=== PATIENT | male | born 2000 | race Caucasian/White ===

== ENCOUNTER → 2022-07-16 14:15 | Outpatient (BNVA) | payer OTHER, SELFPAY | PROVIDERS: PCP Pediatrics; Visit Provider Physician Assistant Medical | DX: Z13.89 Encounter for screening for other disorder (principal) | CPT/HCPCS: 99202 ==

== ENCOUNTER → 2022-09-14 12:11 | Outpatient (BNVA) | payer OTHER, SELFPAY | PROVIDERS: PCP Pediatrics; Visit Provider Physician Assistant Medical | DX: Z13.89 Encounter for screening for other disorder (principal) | CPT/HCPCS: 99203 ==

== ENCOUNTER → 2022-09-17 09:48 | Outpatient (BNVA) | payer OTHER, SELFPAY | PROVIDERS: PCP Pediatrics; Visit Provider Internal Medicine | DX: Z13.89 Encounter for screening for other disorder (principal) | CPT/HCPCS: 99213 ==

== ENCOUNTER → 2022-09-25 11:20 | Outpatient (BNVA) | payer OTHER, SELFPAY | PROVIDERS: PCP Pediatrics; Visit Provider Physician Assistant Medical | DX: Z13.89 Encounter for screening for other disorder (principal) | CPT/HCPCS: 99213 ==

== ENCOUNTER 2022-10-01 15:00 | Outpatient (RCR) | payer OTHER, MEDICAID, SELFPAY ==
--- NOTE | 2022-09-22 16:54 | MHC.PT.EP ---
[facility] [place] Office [place] Office [place] Office [address] Arabella Craig [address] [phone] F: [phone] F: [phone] F: [phone] F: [phone] Physical Therapy Plan of Care Date of Evaluation: Date of Surgery: N/A Diagnosis: upper lumbar lower thoracic strain Assessment: Pt is a pleasant and motivated 22yo M who presents to PT with mid back pain after transporting a bed through a narrow doorway on 09/14/22. Pt presents to PT with current impairments in pain, decreased thoracic ROM, soft tissue restrictions, decreased strength and impaired posture. He is TTP throughout R medial scap border, rhomboids, mid traps and R thoracic PS. He is limited functionally by prolonged sitting, prolonged standing, and twisting. He is an excellent candidate for skilled PT in order to address current impairments to facilitate return to PLOF. He is recommended to be seen 1x/week for 5 weeks and will be reassessed at that time. Frequency and Duration: The patient will be seen 1x/week for 5 weeks Short Term Goals: Pt will be I with HEP to promote self management of symptoms Pt will demonstrate improvements in postural awareness throughout the day Senior Care Goals: Pt will achieve full, pain-free ROM all planes of thoracic spine Pt will tolerate sitting > 30 min with improved posture and minimal to no discomfort to assist with work related tasks Treatment Plan: Modalities to reduce pain, spasms and effusion. Manual therapy to restore motion and function. Therapeutic exercise to improve strength and flexibility. Neuromuscular re-education for posture and balance. Therapeutic activities to return to functional activities of daily living. Electronically signed by: Elizabeth Salamanca, PT, DPT Please sign and return to therapist. Thank you for your referral.
--- NOTE | 2022-10-27 14:35 | MHC.PT.DC ---
[facility] [place] Office [place] Office [place] Office [address] Arabella Craig [address] [phone] F: [phone] F: [phone] F: [phone] F: [phone] Physical Therapy Discharge Report Diagnosis: upper lumbar lower thoracic strain Date of Surgery: N/A Date of Evaluation: 09/22/22 Date of Discharge: 10/27/22 Treatments to Date: 2 Cancellations to Date: No Shows to Date: 3 Discharge Status: Visit Non-compliance Discharge Summary: Pt was seen for skilled PT from 09/22/22-10/01/22. He attended initial PT evaluation and 1 PT treatment session. He has had 3 no-show appointments since SOC. He is being D/C from skilled PT per [facility] attendance policy and visit non-compliance. Electronically signed by: Elizabeth Salamanca, PT, DPT Please sign and return to therapist. Thank you for your referral.
== END 2022-10-27 14:34 | disposition home or self-care (01) ==
LOC: HO.PT 15:00
PROVIDERS: Visit Provider Physician Assistant
DX: M54.9 Dorsalgia, unspecified (principal)
CPT/HCPCS: 97110; 97140; 97161

== ENCOUNTER → 2022-11-10 08:42 | Outpatient (BNVA) | payer OTHER, SELFPAY | PROVIDERS: PCP Pediatrics; Visit Provider Physician Assistant Medical | DX: Z13.89 Encounter for screening for other disorder (principal) | CPT/HCPCS: 99202 ==

== ENCOUNTER → 2022-11-20 09:29 | Outpatient (BNVA) | payer OTHER, SELFPAY | PROVIDERS: PCP Pediatrics; Visit Provider Physician Assistant Medical | DX: Z13.89 Encounter for screening for other disorder (principal) | CPT/HCPCS: 99213 ==

== ENCOUNTER → 2022-12-04 09:46 | Outpatient (BNVA) | payer OTHER, SELFPAY | PROVIDERS: PCP Pediatrics; Visit Provider Physician Assistant Medical | DX: Z13.89 Encounter for screening for other disorder (principal) | CPT/HCPCS: 99213 ==

== ENCOUNTER 2022-12-22 07:00 | Outpatient (RCR) | payer OTHER, MEDICAID, SELFPAY | END 2023-01-29 13:15 | disposition home or self-care (01) | LOC: HO.PT 07:00 | PROVIDERS: PCP Pediatrics; Visit Provider Physician Assistant Medical | DX: S29.012D Strain of muscle and tendon of back wall of thorax, subsequent encounter (principal) | CPT/HCPCS: 97110; 97140; 97161 ==

== ENCOUNTER 2023-04-14 13:01 | Emergency (ER) | payer OTHER, SELFPAY ==
--- NOTE | ~2023-04-14 | XR_ITS ---
EXAMINATION: XR CHEST CLINICAL INFORMATION: Cough with black sputum COMPARISON: None available. TECHNIQUE: 2 views of the chest were obtained. FINDINGS: No significant abnormality is noted involving the heart, lungs, mediastinum, bony thorax or soft tissues. XR/XR chest 2V IMPRESSION: Unremarkable examination.
[2023-04-14 13:09] VITALS: BP 144/75; PULSE 70; RESP 18; TEMP 36.9; O2SAT 98; BMI 20.4
--- NOTE | 2023-04-14 13:10 | ED_ITS ---
HPI - General Adult General Chief complaint: Upper Respiratory Symptoms Stated complaint: Black phlegm Time Seen by Provider: 04/14/23 14:59 Source: patient Mode of arrival: ambulatory Limitations: no limitations History of Present Illness HPI narrative: patient with clear phlegm and black spots. 2 weeks, no blood. Patient smokes, denies wood burning stove, no fireplace, not chewing tobacco. Denies fever. Onset (ago): day(s) Severity: mild Related Data Previous Rx's Medication Instructions Recorded cyclobenzaprine 10 mg tablet 10 mg PO BEDTIME PRN muscle spasm 09/14/22 #7 tabs nicotine (polacrilex) 4 mg gum 4 mg buccal Q4-8H PRN nicotine 04/14/23 (Nicorette) cravings #100 ea Allergies Allergy/AdvReac Type Severity Reaction Status Date / Time No Known Allergies Allergy Verified 04/14/23 13:09 Review of Systems 2 Review of Systems: Yes all other systems are reviewed and are negative Neurologic: Denies Sensory deficit (Neuro) [facility] Social History Social History Advance Directives: No Advance Directives Information Provided: No Physical Exam ED Vital Signs: Vital Signs - 24 hr 04/14/23 13:09 Temperature 98.4 F Pulse Rate 70 Respiratory Rate 18 Blood Pressure 144/75 H Pulse Oximetry 98 Oxygen Delivery Method Room Air BMI result Body Mass Index 20.4 Const General: healthy appearing Nutritional Appearance: average body habitus Orientation/consciousness: oriented to person and patient oriented x3 Limitations: no limitations HENMT Head: Yes normal to inspection Ears: external ears normal General nose exam: Normal external nose present Mouth: Normal oral and palatal mucosa present and oropharynx normal Throat: Yes posterior oropharynx normal Eyes General: appearance normal, both eyes and all related structures Neck Neck: Yes normal visual inspection Chest Chest palpation & inspection: normal inspection of the chest Resp Auscultation: clear to auscultation bilaterally Cardio Jugular venous distension: no JVD Rate: regular rate Rhythm: regular rhythm Heart sounds: S1 normal heart sound present and S2 normal heart sound present GI Inspection: Yes normal to inspection Palpation (GI): Soft to palpation, nontender and No hepatosplenomegaly present Auscultation: normal bowel sounds General: Yes no CVA tenderness Back/Spine/Pelvis Back: no CVA tenderness Skin General skin exam: no rashes or lesions noted Neuro General: oriented to person and patient oriented x3 Cranial nerves: Yes CN's II-XII intact bilaterally Motor exam (neuro): 5/5 motor strength present throughout Sensory Exam: No Sensory deficit (Neuro) Extrem General: Yes normal to inspection Psych Appearance: grossly normal Course Course Course Narrative: RME: 22 year-old M w/no sig PMHx presenting to the ED c/o coughing up black specked sputum x2 weeks, daily. Denies brbpr/melena. No AC use, Admits to mild SOB Labs, CXR, viral studies ordered Full HPI, ROS and PE to be performed by primary ED provider. Reevaluation(s) Reevaluation #1: smoking cessation: discussed for 5 minutes the importance of stopping smoking and the different ways and interventions to make that happen. No evidence of pneumonia or other pulmonary pathology Time: 15:28 Medical Decision Making Differential Diagnosis Differential Diagnoses: The differential diagnosis associated with the presentation includes (Pneumonia, COPD, smoking damage, rsv, covid, influenza were all considered) Admission/Observation Consideration of admission/observation: Escalation of care including admission/observation considered (upon arrival patient was considered for admission) Lab Data MDM Lab Attestation statement: I reviewed the patient's lab results. 04/14/23 13:26 04/14/23 13:26 Labs: Lab Results 04/14/23 Range/Units 13:26 WBC 4.8 (4.8-10.8) X10*3/uL RBC 4.59 L (4.60-5.80) X10*6/uL Hgb 14.2 (14.0-18.0) g/dl Hct 40.3 L (42.0-52.0) % MCV 87.8 (80.0-98.0) fL MCH 30.9 (27.0-33.0) pg MCHC 35.2 (31.0-36.0) g/dl RDW 12.0 (11.0-16.0) % Plt Count 264 (160-400) X10*3/uL MPV 10.2 (9.4-12.4) fL Immature Gran % (Auto) 0.2 (0.0-0.4) % Neut % (Auto) 50.9 (45-73) % Lymph % (Auto) 42.1 H (20-40) % [place] % (Auto) 3.9 (2-11) % Eos % (Auto) 2.5 (0-4) % Baso % (Auto) 0.4 (0-2) % Lymph # (Auto) 2.0 (1.2-4.9) X10*3/uL [place] # (Auto) 0.2 (0.1-1.2) X10*3/uL Eos # (Auto) 0.1 (0.0-0.4) X10*3/uL Baso # (Auto) 0.0 (0.0-0.2) X10*3/uL Abs Immat Gran (auto) 0.01 (0.00-0.03) X10*3/uL Absolute Neuts (auto) 2.5 (2.0-8.3) x10*3/uL Absolute Nucleated RBC 0.000 (0.0-0.012) X10*3/uL Nucleated RBC % (auto) 0.0 (0.0-0.2) /100WBC PT 12.6 (11.1-13.3) SEC INR 1.0 (0.9-1.1) Sodium 140 (135-145) mmol/L Potassium 3.7 (3.3-5.1) mmol/L Chloride 105 (96-108) mmol/L Carbon Dioxide 26 (22-29) mmol/L Anion Gap 13 (12-20) BUN 8 L (9-16) mg/dL Creatinine 0.89 (0.5-1.4) mg/dL Estim Creat Clear Calc 111.3 Estimated GFR > 60 Random Glucose 135 H (60-115) mg/dL Calcium 9.4 (8.4-10.2) mg/dL Magnesium 2.0 (1.6-2.6) mg/dL Total Bilirubin 0.7 (0.0-1.0) mg/dL Direct Bilirubin 0.2 (0.0-0.5) mg/dL AST 20 (5-37) U/L ALT 18 (0-40) U/L Alkaline Phosphatase 59 (39-117) U/L Total Protein 7.2 (6.5-8.0) g/dL Albumin 4.7 (3.5-5.0) g/dL Lipase 14 (8-78) U/L Influenza Type A (PCR) NEGATIVE (Negative) Influenza Type B (PCR) NEGATIVE (Negative) RSV RNA Qual (PCR) NEGATIVE (Negative) SARS-CoV-2 RNA (RT-PCR) NEGATIVE (Negative) Independent Interpretation I performed an independent interpretation of an: EKG (sinus 70, no st or twave changes) and Plain X-Ray (CXR no infiltrate or mass) Tests considered The following testing was considered but not selected: CT of chest considered but patient non toxic normal vital normal xray Prescription Management I considered prescription management with: Antibiotic (no evidence of pneumonia on xray) Social Determinants Patient?s care significantly limited by Social Determinants of Health including: Other Social Determinant of Health (smoking) Discharge Plan Discharge Clinical Impression: Needs smoking cessation education, Smoking Patient Disposition: Home, Self-Care Instructions: How to Stop Smoking (ED) Prescriptions: New nicotine (polacrilex) [Nicorette] 4 mg gum 4 mg buccal Q4-8H PRN (Reason: nicotine cravings) Qty: 100 0RF No Action cyclobenzaprine 10 mg tablet 10 mg PO BEDTIME PRN (Reason: muscle spasm) Qty: 7 0RF Referrals: Physician,Nonstaff [Physician] - 1 week
--- NOTE | 2023-04-14 13:12 | ECG_ITS ---
Test Reason : SOB Blood Pressure : / mmHG Vent. Rate : 068 BPM Atrial Rate : 068 BPM P-R Int : 144 ms QRS Dur : 094 ms QT Int : 394 ms P-R-T Axes : 058 059 050 degrees QTc Int : 418 ms Normal sinus rhythm with sinus arrhythmia Normal ECG No previous ECGs available Referred By: Charla Sierra Electronically Signed By:EUFEMIA PETERSEN MD
[2023-04-14 13:33] LABS: MANUAL DIFF FLAG NO
[2023-04-14 13:37] LABS: Basophils Percent Auto 0.4 % (0-2); Eosinophils Absolute Auto 0.1 X10*3/uL (0.0-0.4); Eosinophils Percent Auto 2.5 % (0-4); Hematocrit 40.3 % (42.0-52.0); Hemoglobin 14.2 g/dl (14.0-18.0); Imm Gran Abs Auto 0.01 X10*3/uL (0.00-0.03); Imm Gran Pct Auto 0.2 % (0.0-0.4); Lymphocytes Percent Auto 42.1 % (20-40); Mean Corpuscular HGB Conc 35.2 g/dl (31.0-36.0); Mean Corpuscular Hemoglobin 30.9 pg (27.0-33.0); Mean Corpuscular Volume 87.8 fL (80.0-98.0); Mean Platelet Volume 10.2 fL (9.4-12.4); Monocytes Absolute Auto 0.2 X10*3/uL (0.1-1.2); Monocytes Percent Auto 3.9 % (2-11); Neutrophils Absolute Auto 2.5 x10*3/uL (2.0-8.3); Neutrophils Percent Auto 50.9 % (45-73); Platelet Count 264 X10*3/uL (160-400); Red Blood Count 4.59 X10*6/uL (4.60-5.80); White Blood Count 4.8 X10*3/uL (4.8-10.8)
[2023-04-14 13:46] LABS: Prothrombin Time 12.6 SEC (11.1-13.3)
[2023-04-14 13:52] LABS: Alanine Aminotransferase 18 U/L (0-40); Albumin Level 4.7 g/dL (3.5-5.0); Alkaline Phosphatase 59 U/L (39-117); Anion Gap 13 (12-20); Aspartate Amino Transferase 20 U/L (5-37); Bilirubin Direct 0.2 mg/dL (0.0-0.5); Bilirubin Total 0.7 mg/dL (0.0-1.0); Blood Urea Nitrogen 8 mg/dL (9-16); Calcium 9.4 mg/dL (8.4-10.2); Carbon Dioxide 26 mmol/L (22-29); Chloride 105 mmol/L (96-108); Creatinine Clr Calc Pharmacy 111.3; Estimated Glomerular Filt Rate > 60; Glucose Random 135 mg/dL (60-115); Lipase 14 U/L (8-78); Potassium 3.7 mmol/L (3.3-5.1); Sodium 140 mmol/L (135-145); Total Protein 7.2 g/dL (6.5-8.0)
[2023-04-14 15:04] LABS: Influenza A PCR NEGATIVE (Negative); Influenza B PCR NEGATIVE (Negative); Resp Syncy Virus RNA Qual PCR NEGATIVE (Negative); SARS COV2 PCR INHOUSE NEGATIVE (Negative)
== END 2023-04-14 15:42 | disposition home or self-care (01) ==
PROVIDERS: Physician Assistant; Emergency Provider Emergency Medicine
DX: R04.2 Hemoptysis (principal); F17.210 Nicotine dependence, cigarettes, uncomplicated; Z71.6 Tobacco abuse counseling; Z20.822 Contact with and (suspected) exposure to COVID-19; Z20.828 Contact with and (suspected) exposure to other viral communicable diseases
CPT/HCPCS: 0241U; 71046; 80048; 80076; 83690; 83735; 85025; 85610; 93005; 99283

== ENCOUNTER → 2023-04-14 13:12 | Outpatient (BNV) | payer OTHER, SELFPAY | PROVIDERS: Emergency Provider Emergency Medicine; Visit Provider Internal Medicine Cardiovascular Disease | DX: R06.02 Shortness of breath (principal) | CPT/HCPCS: 93010 ==

== ENCOUNTER 2025-03-23 16:25 | Emergency (ER) | payer MEDICAID, SELFPAY ==
--- NOTE | ~2025-03-23 | XR_ITS ---
CLINICAL HISTORY: cp sob 2 view chest x-ray. Comparison: 04/14/2023 Findings: No consolidation or effusion. Cardiac and mediastinal contours are stable. Bones unremarkable. Impression: 1. No acute pulmonary disease. This document has been electronically signed by: Ian Arnold MD on 03/23/2025 19:59:23
--- NOTE | 2025-03-23 16:27 | ECG_ITS ---
Test Reason : palpitations Blood Pressure : */* mmHG Vent. Rate : 89 BPM Atrial Rate : 89 BPM P-R Int : 140 ms QRS Dur : 82 ms QT Int : 348 ms P-R-T Axes : 74 46 45 degrees QTcB Int : 423 ms Normal sinus rhythm with sinus arrhythmia Normal ECG When compared with ECG of 14-Apr-2023 13:21, No significant change was found Referred By: Charla Sierra Electronically Signed By: Andrew Nunez
[2025-03-23 16:52] VITALS: BP 134/65; PULSE 78; RESP 16; TEMP 36.2; O2SAT 97; BMI 21.8
[2025-03-23 17:42] LABS: MANUAL DIFF FLAG NO
[2025-03-23 17:54] LABS: Hematocrit 40.0 % (42.0-52.0); Hemoglobin 14.1 g/dl (14.0-18.0); Imm Gran Abs Auto 0.02 X10*3/uL (0.00-0.03); Imm Gran Pct Auto 0.4 % (0.0-0.4); Lymphocytes Absolute Auto 0.6 X10*3/uL (1.2-4.9); Mean Corpuscular HGB Conc 35.3 g/dl (31.0-36.0); Mean Corpuscular Hemoglobin 30.5 pg (27.0-33.0); Mean Corpuscular Volume 86.6 fL (80.0-98.0); NRBC Abs Auto 0.000 X10*3/uL (0.0-0.012); NRBC Pct Auto 0.0 /100WBC (0.0-0.2); Platelet Count 222 X10*3/uL (160-400); Red Blood Count 4.62 X10*6/uL (4.60-5.80); White Blood Count 5.0 X10*3/uL (4.8-10.8)
[2025-03-23 17:57] LABS: Anion Gap 12 (12-20); Blood Urea Nitrogen 10 mg/dL (9-16); Calcium 9.3 mg/dL (8.4-10.2); Carbon Dioxide 27 mmol/L (22-29); Chloride 102 mmol/L (96-108); Creatinine Clr Calc Pharmacy 103.6; Estimated Glomerular Filt Rate > 60; Potassium 3.9 mmol/L (3.3-5.1); Sodium 137 mmol/L (135-145)
[2025-03-23 18:09] LABS: Troponin-I High Sensitivity < 2.7 ng/L (<3.5-35.0)
[2025-03-23 18:41] LABS: Resp Syncy Virus RNA Qual PCR NEGATIVE (Negative); SARS COV2 PCR INHOUSE NEGATIVE (Negative)
--- NOTE | 2025-03-23 19:25 | ED_ITS ---
HPI - Chest Pain General Chief Complaint: Chest Pain Stated Complaint: heart palpatations Time Seen by Provider: 03/23/25 20:32 History of Present Illness HPI narrative: Patient is a 24-year-old male presents today with having left-sided chest pain. Sharp at times. Lasts for about 15 minutes each time. Associated with coughing that is been ongoing for the last week and a half. Patient has been having some flu-like symptoms. No diaphoresis. Positive generalized malaise. No bloody stool. Patient from home. Related Data Previous Rx's ?Medication ?Instructions ?Recorded cyclobenzaprine 10 mg tablet 10 mg PO BEDTIME PRN musc le spasm 09/14/22 #7 tabs nicotine (polacrilex) 4 mg gum 4 mg buccal Q4-8H PRN n icotine 04/14/23 (Nicorette) cravings #100 ea Allergies Allergy/AdvReac Type Severity Reaction Status Date / Time No Known Allergies Allergy Verified 03/23/25 16:55 Review of Systems 2 Review of Systems: Positive fever positive generalized malaise positive aches Yes all other systems are reviewed and are negative [facility] Past Medical History Attestation statement: The following information was validated with the patient. Social History Social History Smoked in Last 30 Days: Yes Use of substances other than those prescribed or required for medical reasons: No Advance Directives: No Advance Directives Information Provided: No Do you have a plan to hurt others: No Plan Physical Exam 2 Exam: Exam: Appearance: Alert. Oriented X3. No acute distress. Eyes: Pupils equal, round and reactive to light. ENT: Pharynx normal. Neck: Normal inspection. Neck supple. No lymph nodes noted. No crepitus CVS: Normal heart rate and rhythm. Pulses normal. Normal S1 and S2 Respiratory: No respiratory distress. Breath sounds normal. No Wheezing. No rales Abdomen: Soft and nontender. No rigidity. No distention. good BS x4 Skin: Skin warm and dry. Normal skin color. Normal skin turgor. Extremities: No lower extremity edema. Neurovascular intact to all extremities. No Lacerations. No Rash Neuro: Oriented X 3. No motor deficit. No sensory deficit. Moving all extermities. No slurred speech Vital Signs: Vital Signs: Last Vital Signs Temp 98.6 F 03/23/25 20:44 Pulse 89 03/23/25 20:44 Resp 15 03/23/25 20:44 BP 119/77 03/23/25 20:44 Pulse Ox 98 03/23/25 20:44 O2 Del Method Room Air 03/23/25 20:44 BMI result Body Mass Index 21.8 Course Course Course Narrative: This is a Rapid Medical Exam performed in triage by Charla Sierra PA-C. Full HPI, ROS and PE to be performed by primary ED provider. 24-year-old male presenting to the ED c/o intermittent left-sided chest pain, palpitations and SOB x few months. Also reports fever and recent URI over the past few days. Has been wearing fit bit and heart rate jumps to 140s. PE: NAD, nontoxic appearing, talking in complete sentences Plan: EKG, labs, viral testing, CXR Medical Decision Making Medical Decision Making MDM Narrative: Well-appearing no acute distress. Patient's chest pain atypical. No history of diabetes no history of high blood pressure high cholesterol , mi, family history of GA. Positive history of vaping. Patient EKG appears normal. Sinus rhythm heart rate is 80 NM QRS QTC normal no acute ST segment elevation. History not consistent with ACS. Troponin negative. Heart score is less than 3. Patient in no distress. Chest x-ray showed no pneumonia no pneumothorax. Will discharge patient home close follow-up on an outpatient basis. Differential Diagnosis Differential Diagnoses: The differential diagnosis associated with the presentation includes ACS, pneumonia, pneumothorax Admission/Observation Consideration of admission/observation: Escalation of care including admission/observation considered Lab Data [facility] Lab Attestation statement: I reviewed the patient's lab results. 03/23/25 17:34 03/23/25 17:34 Labs: Lab Results 03/23/25 Range/Units 17:34 WBC 5.0 (4.8-10.8) X10*3/uL RBC 4.62 (4.60-5.80) X10*6/uL Hgb 14.1 (14.0-18.0) g/dl Hct 40.0 L (42.0-52.0) % MCV 86.6 (80.0-98.0) fL MCH 30.5 (27.0-33.0) pg MCHC 35.3 (31.0-36.0) g/dl RDW 12.0 (11.0-16.0) % Plt Count 222 (160-400) X10*3/uL MPV 10.0 (9.4-12.4) fL Immature Gran % (Auto) 0.4 (0.0-0.4) % Neut % (Auto) 79.4 H (45-73) % Lymph % (Auto) 11.3 L (20-40) % [place] % (Auto) 8.9 (2-11) % Eos % (Auto) 0.0 (0-4) % Baso % (Auto) 0.0 (0-2) % Lymph # (Auto) 0.6 L (1.2-4.9) X10*3/uL [place] # (Auto) 0.4 (0.1-1.2) X10*3/uL Eos # (Auto) 0.0 (0.0-0.4) X10*3/uL Baso # (Auto) 0.0 (0.0-0.2) X10*3/uL Abs Immat Gran (auto) 0.02 (0.00-0.03) X10*3/uL Absolute Neuts (auto) 3.9 (2.0-8.3) x10*3/uL Absolute Nucleated RBC 0.000 (0.0-0.012) X10*3/uL Nucleated RBC % (auto) 0.0 (0.0-0.2) /100WBC Sodium 137 (135-145) mmol/L Potassium 3.9 (3.3-5.1) mmol/L Chloride 102 (96-108) mmol/L Carbon Dioxide 27 (22-29) mmol/L Anion Gap 12 (12-20) BUN 10 (9-16) mg/dL Creatinine 1.00 (0.5-1.4) mg/dL Estim Creat Clear Calc 103.6 Estimated GFR > 60 Random Glucose 97 (60-115) mg/dL Calcium 9.3 (8.4-10.2) mg/dL Magnesium 1.9 (1.6-2.6) mg/dL Total Bilirubin 0.3 (0.0-1.0) mg/dL Direct Bilirubin 0.1 (0.0-0.5) mg/dL AST 32 (5-37) U/L ALT 28 (0-40) U/L Alkaline Phosphatase 68 (39-117) U/L Troponin I High Sens < 2.7 (<3.5-35.0) ng/L Total Protein 7.1 (6.5-8.0) g/dL Albumin 4.9 (3.5-5.0) g/dL TSH 0.41 (0.32-4.0) uIU/mL Influenza Type A (PCR) POSITIVE A (Negative) Influenza Type B (PCR) NEGATIVE (Negative) RSV RNA Qual (PCR) NEGATIVE (Negative) SARS-CoV-2 RNA (RT-PCR) NEGATIVE (Negative) Independent Interpretation I performed an independent interpretation of an: EKG (Sinus heart rate is 80 NM QRS QTC normal no acute ST segment elevation noted.) and Plain X-Ray (Chest x- ray negative for pneumonia pneumothorax) Radiology Impression Discussion of test interpretation with radiology: I have reviewed the radiologist's reading. Social Determinants Patient?s care significantly limited by Social Determinants of Health including: Problems related to primary support group Discharge Plan Discharge Clinical Impression: Chest pain, Influenza Patient Disposition: Home, Self-Care Instructions: Chest Pain (DC), Influenza (DC) Prescriptions: No Action nicotine (polacrilex) [Nicorette] 4 mg gum 4 mg buccal Q4-8H PRN (Reason: nicotine cravings) Qty: 100 0RF cyclobenzaprine 10 mg tablet 10 mg PO BEDTIME PRN (Reason: muscle spasm) Qty: 7 0RF Referrals: [facility] [Physician, Medical] - 03/26/25 Andrew Nunez MD [Physician, Cardiology] - 03/26/25 Print Language: Malay
[2025-03-23 19:27] VITALS: BP 126/77; PULSE 90; RESP 18; TEMP 36.9; O2SAT 100
[2025-03-23 20:00] LABS: Alanine Aminotransferase 28 U/L (0-40); Albumin Level 4.9 g/dL (3.5-5.0); Alkaline Phosphatase 68 U/L (39-117); Aspartate Amino Transferase 32 U/L (5-37); Magnesium 1.9 mg/dL (1.6-2.6); Total Protein 7.1 g/dL (6.5-8.0)
--- OUTSIDE RECORDS SUMMARY | 2025-03-23 20:39 | XMS_ITS | Clinical Summary ---
Author Organization [facility] Address [address] [place] [phone] Phone Care Team Providers Care Oil Processing Technician Name Role Phone Unavailable Primary Care Provider Unavailabl e Allergies No known active allergies Medications ibuprofen 200 MG capsule Take 3 capsules by oral route. Active naproxen 500 MG tablet 03/28/2020 Active Active Problems Problem Noted Date Diagnosed Date Marijuana use 12/22/2018 Overview (12/22/2018): Discussed use, family hx of subst use, self medication, risks of addiction in general. Inhalant dependence 12/22/2018 Overview (12/22/2018): Vaping nicotine products, planning to quit. Will mention quit[facility] in f/u phone call. Discussed abnormal pulmonary exam. of parent 11/03/2016 Overview (02/16/2018): Father of drug overdose in 2012. Mother with hx of ETOH use in rehab. Aunt is guardian. 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 Resolved Problems Problem Noted Date Diagnosed Date Resolved Date Mild intermittent asthma without complication 01/24/20 11 03/16/2017 Immunizations Immunization Administration Dates Next Due DTaP 5 06/28/2003, 1,1999,2 000,1999 HPV Vaccine 9 Valent 11/01/2014 HPV, Quadrivalent 11/28/2013,10/27/2013 Hep A, ped/adol 11/01/2014,10/27/2013 Hep B, ped/adol 1999,1999,1999 Hib (PRP-T) 10/08/2000, 0,1999, 000 IPV 06/28/2003, 1,1999, Influenza Split 01/23/2011 MMR 06/28/2003,07/28/2000 Meningococcal Conj (Menactra) MCV4P 11/03/2016,1 Pneumococcal Conjugate 10/08/2000,2000,03/26/2000, Tdap 01/23/2011 Varicella 01/12/2007,07/28/2000 Family History Medical History Relation Name Comments Aplastic anemia Brother junaid Alcoholism Mother fabby Stroke Mother's Sister No Known Problems Sister luna Relation Name Status Comments Brother junaid Alive Brother: Alive and well Father parker Father: De c 2-13 Mother fabby Alive Mother's Sister Sister luna Alive Sister: Alive a nd well Social History Tobacco Use Types Packs/Day Years Used Date Smoking Tobacco: Never Smokeless Tobacco: Never Comments:Never smoker Alcohol Use Standard Drinks/Week Comments No 0 (1 standard drink = 0.6 oz pur e alcohol) Hunger/Food Answer Date Recorded In the last 12 months, did y ou or your family ever eat less than you felt you should because there wasn't enough money for food? No 01/24/2020 Stable Housing Answer Date Recorded Are you worried that in the next 2 months you may not have stable housing? No 01/24/2020 Transportation Concerns Answer Date Rec orded In the last 12 months, have you or your family ever had to go without healthcare because you didn't have a way to get there? No 01/24/2020 Hazards in Home Answer Date Recorded Think about the place you li ve. Do you have problems with any of the following? Pests (mice or roaches), mold, no/not working smoke detectors, water leaks, no window guards. No 2019 Financing Utilities Answer Date Recorde d In the last 12 months, has t he electric, gas, oil, or water company threatened to shut off your services in your home? No 01/24/2020 Safety at Home Answer Date Recorded Are you or your family worried about feeling saf e in your home? No 01/24/2020 Outside Support Answer Date Recorded Do you feel that you need mo re support from other people or programs to help you care for yourself or your family? No 01/24/2020 Understanding Health Concerns Answer Da te Recorded Do you need help understandi ng your or your child's healthcare needs (diagnosis, medications, plan, etc.)? No 01/24/2020 Financing Health Concerns Answer Date R ecorded In the last 12 months, was t here a time when your child needed to see a doctor or get medications or supplies but could not because of cost? No 01/24/2020 Missing School or Work Answer Date Mario rded Did you or your child miss s chool or work because of a health problem that could have been avoided? No 01/24/2020 Sex and Gender Information Value Date Recorded Sex Assigned at Male 12/22/2018 10:52 AM EDT Legal Sex Male 5:02 PM EDT Gender Identity Male 12/22/2018 10:52 AM EDT Sexual Orientation Straight 12/22/2018 10 :52 AM EDT Last Filed Vital Signs Vital Sign Reading Time Taken Comments Blood Pressure 108/70 04/01/2020 1:52 PM EST Pulse 76 04/01/2020 1:52 PM EST Temperature 36.1 C (96.9 F) 04/01/2020 1:52 PM EST Respiratory Rate - - Oxygen Saturation - - Inhaled Oxygen Concentration - - Weight 57.3 kg (126 lb 4 oz) 04/01/2020 1:52 PM EST Height 171.5 cm (5' 7.5 ) 04/01/2020 1:52 PM EST Body Mass Index 19.48 04/01/2020 1:52 PM EST Plan of Treatment Health Maintenance Due Date Last Done Comments DTaP,Tdap,and Td Vaccines (7 - Td or Tdap) 01/23/2021 01/23/2011, 06/28/2003, 12/29/2000, Additional history exists Influenza Vaccines (#1) 2024 01/22/2015, 01/23 COVID-19 Vaccine ( season) 2024 Hepatitis B Vaccines Completed 1999, 1999, 1999 HIB Vaccines Completed 10/08/2000, 12/05, 1999, Additional history exists Pneumococcal Vaccine Completed 10/08/2000, 07/28/2000, 03/26/2000, Additional history exists IPV Vaccines Completed 06/28/2003, 12/05, 1999, Additional history exists MMR Vaccines Completed 06/28/2003, 07/28/2000 Varicella Vaccines Completed 01/12/2007, 07/28/2000 HPV Vaccines Completed 11/01/2014, 11/04, 10/27/2013 Hepatitis A Vaccines Completed 11/01/2014, 10/27/2013, 01/12/2007 Meningococcal Vaccine Completed 11/03/2016, 011 Men B Vaccine Aged Out No longer elig ible based on patient's age to complete this topic [place] [place] [id number] [facility] NON PCC
--- OUTSIDE RECORDS SUMMARY | 2025-03-23 20:39 | XMS_ITS | Clinical Summary ---
Author Organization [employer] Address [address] [facility] [address] [place] [address] Care Team Providers Care Batch Weigher Name Role Phone Unavailable Primary Care Provider Unavailabl e Social History Tobacco Use Types Packs/Day Years Used Date Smoking Tobacco: Never Assessed Sex and Gender Information Value Date Recorded Sex Assigned at Not on file Legal Sex Male 9:23 PM EDT Gender Identity Not on file Sexual Orientation Not on file Plan of Treatment Health Maintenance Due Date Last Done Comments Depression Screening 1999 HIV Screening 1999 SDOH Screening 1999 Disability Screening 1999 Alcohol/Substance Use Screening 2011 Tobacco Screening 2011 Family Planning (PISQ) 06/23/2014 HPV Vaccines (1 - Male 3-dos e series) 06/23/2014 Hepatitis C Screening 06/23/2017 DTaP/Tdap/Td Vaccines (1 - Tdap) 06/23/2018 Hepatitis B Vaccines (1 of 3 - 19+ 3-dose series) 06/23/2018 COVID-19 Vaccine (1 - 2024-2 6 season) 2024 Influenza Vaccine (#1) 2024 Zoster Vaccines (1 of 2) 06/23/2049 RSV Patients and Pa tients Aged 60 years or older (1 - 1-dose 75+ series) 06/23/2074 HIB Vaccines Aged Out No longer eligi ble based on patient's age to complete this topic Hepatitis A Vaccines Aged Out No long er eligible based on patient's age to complete this topic IPV Vaccines Aged Out No longer eligi ble based on patient's age to complete this topic Meningococcal B Vaccine Aged Out No l onger eligible based on patient's age to complete this topic Meningococcal Vaccine Aged Out No rudy [place] eligible based on patient's age to complete this topic Pneumococcal Vaccine: Pediat rics (0 to 5 Years) and At-Risk Patients (6 to 49) Years Aged Out No longer eligible b ased on patient's age to complete this topic RSV under 20 months Aged Out No longe r eligible based on patient's age to complete this topic Rotavirus Vaccines Aged Out No longer eligible based on patient's age to complete this topic
--- OUTSIDE RECORDS SUMMARY | 2025-03-23 20:39 | XMS_ITS | Encounter Summary ---
Author Organization [facility] Address [address] [place] [address] Phone Care Team Providers Care Program Management Professional Name Role Phone Leann Higuera MD Primary Care Provider Encounter Details Date Type Department Care Team (Late st Contact Info) Description 06/10/2009 Documentation [facility] [place] Family Medicine [address] [place], [place] [id number] Family Medicine, Physician [address] [place] [address] Social History Tobacco Use Types Packs/Day Years Used Date Smoking Tobacco: Never Assessed Sex and Gender Information Value Date Recorded Sex Assigned at Male 12/22/2018 10:52 AM EDT Legal Sex Male 5:02 PM EDT Gender Identity Male 12/22/2018 10:52 AM EDT Sexual Orientation Straight 12/22/2018 10 :52 AM EDT documented as of this encounter Plan of Treatment Not on file documented as of this encounter Visit Diagnoses Not on filedocumented in this encounter Care Teams Program Management Professional Relationship Specialty Start Date End Date Leann Higuera MD [address] [place] [address] PCP - General 11/13/16 07/05/22 documented as of this encounter
--- OUTSIDE RECORDS SUMMARY | 2025-03-23 20:40 | XMS_ITS | Encounter Summary ---
Author Organization [facility] Address [address] [place] [address] Phone Care Team Providers Care Stores Assistant Name Role Phone Leann Higuera MD Primary Care Provider [phone]- [phone] Encounter Details Date Type Department Care Team (Late st Contact Info) Description 11/09/2016 Documentation [facility] [place] [address] [place], [place] [id number] Family Medicine, Physician [facility] [place], [place] [address] Social History Tobacco Use Types Packs/Day Years Used Date Smoking Tobacco: Never Comments:Never smoker Sex and Gender Information Value Date Recorded Sex Assigned at Male 12/22/2018 10:52 AM EDT Legal Sex Male 5:02 PM EDT Gender Identity Male 12/22/2018 10:52 AM EDT Sexual Orientation Straight 12/22/2018 10 :52 AM EDT documented as of this encounter Plan of Treatment Not on file documented as of this encounter Visit Diagnoses Not on filedocumented in this encounter Care Teams Stores Assistant Relationship Specialty Start Date End Date Leann Higuera MD [address] [place] [address] PCP - General 11/13/16 07/05/22 documented as of this encounter
--- OUTSIDE RECORDS SUMMARY | 2025-03-23 20:40 | XMS_ITS | Encounter Summary ---
Author Organization [facility] Address [address] [place] [address] Phone Care Team Providers Care Telehealth Nurse Educator Name Role Phone Leann Higuera MD Primary Care Provider [phone]- [phone] Encounter Details Date Type Department Care Team (Late st Contact Info) Description 11/09/2016 Documentation [facility] [place] [address] [place], [place] [id number] Family Medicine, Physician [facility] [place], [place] [address] Social History Tobacco Use Types Packs/Day Years [...] on filedocumented in this encounter Care Teams Telehealth Nurse Educator Relationship Specialty Start Date End Date Leann Higuera MD [address] [place] [phone] PCP - General 11/13/16 07/05/22 documented as of this encounter
--- OUTSIDE RECORDS SUMMARY | 2025-03-23 20:40 | XMS_ITS | Encounter Summary ---
Author Organization [facility] Address [address] [place] [address] Phone Care Team Providers Care Cross Country And Track And Field Coach Name Role Phone Leann Higuera MD Primary Care Provider [phone]- [phone] Encounter Details Date Type Department Care Team (Late st Contact Info) Description 11/24/2016 Documentation [facility] [place] [address] [place], [place] [phone] Family Medicine, Physician [facility] [place], [place] [address] Social History Tobacco Use Types Packs/Day Years [...] on filedocumented in this encounter Care Teams Cross Country And Track And Field Coach Relationship Specialty Start Date End Date Leann Higuera MD [address] [place] [address] PCP - General 11/13/16 07/05/22 documented as of this encounter
--- OUTSIDE RECORDS SUMMARY | 2025-03-23 20:40 | XMS_ITS | Encounter Summary ---
Author Organization [facility] Address [address] [place] [address] Phone Care Team Providers Care Rn New Graduate Name Role Phone Leann Higuera MD Primary Care Provider [phone]- [phone] Encounter Details Date Type Department Care Team (Late st Contact Info) Description 11/19/2016 Documentation [facility] [place] Family Medicine [address] [place], [place] [id number] Family Medicine, Physician [facility] [place], [place] [address] Social History Tobacco Use Types Packs/Day Years [...] on filedocumented in this encounter Care Teams Rn New Graduate Relationship Specialty Start Date End Date Leann Higuera MD [address] [place] [address] PCP - General 11/13/16 07/05/22 documented as of this encounter
--- OUTSIDE RECORDS SUMMARY | 2025-03-23 20:40 | XMS_ITS | Encounter Summary ---
Author Organization [facility] Address [address] [place] [address] Phone Care Team Providers Care Acetylene Cylinder Packing Mixer Name Role Phone Leann Higuera MD Primary Care Provider [phone] Encounter Details Date Type Department Care Team (Late st Contact Info) Description 11/08/2012 Documentation [facility] [place] Family Medicine [address] [place], [place] [phone] Family Medicine, Physician [address] [place] [address] Social History Tobacco Use Types Packs/Day Years [...] on filedocumented in this encounter Care Teams Acetylene Cylinder Packing Mixer Relationship Specialty Start Date End Date Leann Higuera MD [address] [place] [address] PCP - General 11/13/16 07/05/22 documented as of this encounter
--- OUTSIDE RECORDS SUMMARY | 2025-03-23 20:40 | XMS_ITS | Encounter Summary ---
Author Organization [facility] Address [address] [place] [address] Phone Care Team Providers Care Tier Lift Operator Name Role Phone Leann Higuera MD Primary Care Provider [phone]- [phone] Encounter Details Date Type Department Care Team (Late st Contact Info) Description 11/16/2016 [place]ation [facility] [place] [address] [place], [place] [phone] Family Medicine, Physician [facility] [place], [place] [address] Social History Tobacco Use Types Packs/Day Years [...] on filedocumented in this encounter Care Teams Tier Lift Operator Relationship Specialty Start Date End Date Leann Higuera MD [address] [place] [phone] PCP - General 11/13/16 07/05/22 documented as of this encounter
--- OUTSIDE RECORDS SUMMARY | 2025-03-23 20:40 | XMS_ITS | Encounter Summary ---
Author Organization [facility] Address [address] [place] [address] Phone Care Team Providers Care Biomechanical Engineer Name Role Phone Leann Higuera MD Primary Care Provider Encounter Details Date Type Department Care Team (Late st Contact Info) Description 11/14/2012 [place]ation [facility] [place] [address] [place], [place] [phone] Family Medicine, Physician [address] [place] [address] Social History Tobacco Use Types Packs/Day Years [...] on filedocumented in this encounter Care Teams Biomechanical Engineer Relationship Specialty Start Date End Date Leann Higuera MD [address] [place] [address] PCP - General 11/13/16 07/05/22 documented as of this encounter
--- OUTSIDE RECORDS SUMMARY | 2025-03-23 20:40 | XMS_ITS | Encounter Summary ---
Author Organization [facility] Address [address] [place] [address] Phone Care Team Providers Care Skills Auditor Name Role Phone Leann Higuera MD Primary Care Provider [phone]- [phone] Encounter Details Date Type Department Care Team (Late st Contact Info) Description 11/09/2016 Documentation [facility] [place] [address] [place], [place] [phone] Family Medicine, Physician [facility] [place], [place] [address] Social History Tobacco Use Types Packs/Day Years [...] on filedocumented in this encounter Care Teams Skills Auditor Relationship Specialty Start Date End Date Leann Higuera MD [address] [place] [address] PCP - General 11/13/16 07/05/22 documented as of this encounter
--- OUTSIDE RECORDS SUMMARY | 2025-03-23 20:40 | XMS_ITS | Encounter Summary ---
Author Organization [facility] Address [address] [place], [place] [phone] Phone Care Team Providers Care Smoke Room Operator Name Role Phone Leann Higuera MD Primary Care Provider [phone]- [phone] Encounter Details Date Type Department Care Team (Late st Contact Info) Description 11/19/2016 Conversion Encounter [facility] [place] [address] [place] [address] Social History Tobacco Use Types Packs/Day Years [...] on filedocumented in this encounter Care Teams Smoke Room Operator Relationship Specialty Start Date End Date Leann Higuera MD [address] [place] [address] PCP - General 11/13/16 07/05/22 documented as of this encounter
[2025-03-23 20:44] VITALS: BP 119/77; PULSE 89; RESP 15; TEMP 37; O2SAT 98
--- NOTE | 2025-03-23 20:45 | PC.NURSE ---
pt a&ox4, respirations even and unlabored. pt reports cough, chest pain and shortness of breath x2 weeks. pt reports intermittent fever and chills that resolve on their own. vss. awaiting md at this time.
[2025-03-23 21:50] VITALS: BP 119/77; PULSE 89; RESP 15; TEMP 37; O2SAT 98
== END 2025-03-23 21:51 | disposition home or self-care (01) ==
PROVIDERS: Physician Assistant; Emergency Provider Emergency Medicine Emergency Medical Services
DX: R07.9 Chest pain, unspecified (principal); J10.1 Influenza due to other identified influenza virus with other respiratory manifestations; R00.2 Palpitations; R06.02 Shortness of breath
CPT/HCPCS: 36415; 71046; 80048; 80076; 83735; 84443; 84484; 85025; 87637; 93005; 99283; 99285

== ENCOUNTER → 2025-03-23 16:27 | Outpatient (BNV) | payer MEDICAID, SELFPAY | PROVIDERS: Emergency Provider Emergency Medicine Emergency Medical Services; Visit Provider Internal Medicine Cardiovascular Disease | DX: R00.2 Palpitations (principal) | CPT/HCPCS: 93010 ==

== ENCOUNTER → 2025-03-23 19:29 | Outpatient (BNV) | payer OTHER, SELFPAY | PROVIDERS: Visit Provider Radiology Diagnostic Radiology | DX: R07.9 Chest pain, unspecified (principal); R06.02 Shortness of breath | CPT/HCPCS: 71046 ==